=== PATIENT | male | born 1995 | race Caucasian/White ===

== ENCOUNTER 2017-04-08 16:16 | Emergency (ER) | payer BC ==
[~2017-04-08] VITALS: Ht 170.2 cm; Wt 73.0 kg
[2017-04-08 16:18] VITALS: BP 146/84
[2017-04-08] MEDS ORDERED: PRED20TA PO (16:32)
--- NOTE | 2017-04-08 16:33 | PHYS DOC ---
Past Medical History Past Medical History: Asthma Past Surgical History: Appendectomy, Cholecystectomy, Other Additional Past Surgical Histo: hand surgery Alcohol Use: None Drug Use: None Adult General Chief Complaint Chief Complaint: ASTHMA HPI HPI Patient is a 21 year old male presents to the emergency department stating that he's been having some problems with his asthma today. Patient states that he used his albuterol hand-held inhaler prior to arrival. Patient states that he does have a nebulizer machine at home with medication. Patient denies any history of smoking. Patient's oxygenation is 99% on room air. Patient was noted to speak in full sentences. Review of Systems Review of Systems Constitutional: Denies fever or chills [] Eyes: Denies change in visual acuity, redness, or eye pain [] HENT: Denies nasal congestion or sore throat [] Respiratory: Denies cough or complaint of shortness of breath [] Cardiovascular: No additional information not addressed in HPI [] GI: Denies abdominal pain, nausea, vomiting, bloody stools or diarrhea [] : Denies dysuria or hematuria [] Musculoskeletal: Denies back pain or joint pain [] Integument: Denies rash or skin lesions [] Neurologic: Denies headache, focal weakness or sensory changes [] Endocrine: Denies polyuria or polydipsia [] Current Medications Current Medications Current Medications Medications (Trade) Dose Ordered Sig/Hi Start Time Stop Time Status Last Admin Dose Admin Prednisone (Prednisone) 40 mg 1X ONCE 04/08/17 17:00 04/08/17 17:01 Allergies Allergies Allergies Coded Allergies Type Severity Reaction Last Updated Verified Penicillins Allergy Intermediate Hives 04/08/17 No Physical Exam Physical Exam Constitutional: Well developed, well nourished, no acute distress, non-toxic appearance. [] HENT: Normocephalic, atraumatic, bilateral external ears normal, oropharynx moist, no oral exudates, nose normal. [] Eyes: PERRLA, EOMI, conjunctiva normal, no discharge. [] Neck: Normal range of motion, no tenderness, supple, no stridor. [] Cardiovascular:Heart rate regular rhythm, no murmur [] Lungs & Thorax: Bilateral breath sounds clear to auscultation [] Skin: Warm, dry, no erythema, no rash. [] Back: No tenderness Extremities: No tenderness, no cyanosis, no clubbing, ROM intact, no edema. [] Neurologic: Alert and oriented X 3, normal motor function, normal sensory function, no focal deficits noted. [] Psychologic: Affect normal, judgement normal, mood normal. [] Current Patient Data Vital Signs Vital Signs Date Time Temp Pulse Resp B/P (MAP) Pulse Ox O2 Delivery O2 Flow Rate FiO2 04/08/17 16:18 98.1 64 16 99 Room Air 98.1 EKG EKG [] Radiology/Procedures Radiology/Procedures [] Course & Med Decision Making Course & Med Decision Making Pertinent Labs and Imaging studies reviewed. (See chart for details) Patient will be provided with prednisone here in the emergency department. Patient will be discharged home with recommendations to use his albuterol inhaler as needed. Use the nebulizer machine in which she has at home as needed for shortness of air difficulty breathing. Patient will be discharged home in stable condition. Signs and symptoms to return back to emergency department has been provided. [] Dragon Disclaimer Dragon Disclaimer This electronic medical record was generated, in whole or in part, using a voice recognition dictation system. Departure Departure Impression: Primary Impression: Asthma Disposition: HOME, SELF-CARE Condition: STABLE Referrals: NO PCP (PCP) Patient Instructions: Asthma, Adult, [id number] Additional Instructions: Activity as tolerated Medication as prescribed Continue to use your albuterol inhaler as prescribed Use your home nebulizer machine as prescribed Followup with your primary care provider in 3-5 days Return to emergency department as needed for signs and symptoms that become worse. Scripts Prednisone (PREDNISONE) 20 Mg Tablet 40 MG PO DAILY, #14 TAB Prov: JUN CHAPA APRN 04/08/17 JUN CHAPA APRN Apr 08, 2017 16:33
[2017-04-08] MEDS ORDERED: predniSONE 20 MG TABLET PO ONE (17:00)
== END 2017-04-08 16:47 | disposition home or self-care (01) ==
LOC: ER 16:16
DX: J45.909 Unspecified asthma, uncomplicated (principal)
CPT/HCPCS: 99283; J7512